=== PATIENT | male | born 1950 | race Caucasian/White ===

== ENCOUNTER 2023-06-19 16:50 | Emergency (ER) | payer MEDICARE, SELFPAY ==
--- NOTE | ~2023-06-19 | XR_ITS ---
EXAM: XR foot LT min 3V DATE: 06/19/2023 18:01 HISTORY: Pain x 2-3 days. NKI. Swelling. Dorsal/lat pain. . COMPARISON: None available. FINDINGS: Normal mineralization. No fracture or dislocation. No lytic or blastic lesion. Mild scatte red degenerative changes. Mild Achilles and moderate plantar enthesopathy with adjacent soft tissue c alcifications. No erosion or periosteal change. Soft tissues within normal limits. IMPRESSION: No acute osseous finding in the left foot. Reviewed, dictated and finalized at location [facility]
[2023-06-19 17:10] VITALS: BP 116/97; PULSE 93; RESP 20; TEMP 37.2; O2SAT 96
--- NOTE | 2023-06-19 18:22 | ED.GENADULT ---
HPI - General Adult General Chief complaint: Extremity Problem,Nontraumatic Stated complaint: Left Ankle Pain Time Seen by Provider: 06/19/23 18:00 Source: patient, family, RN notes reviewed and old records reviewed Mode of arrival: wheelchair Limitations: no limitations History of Present Illness HPI narrative: 73 year old male accompanied by with complaints of 2-3 day history of left upper fore foot and lateral ankle pain and swelling with no known injury. Patient reports that he has tightness to his left foot and ankle with sharp shooting pain and is tender on palpation, denies any tingling or numbness pulses palpable to the top of left foot.Patient reports that when he elevates his foot it hurts worse and seems to swell more. Patient states that ambulation is difficult for him not only due to pain of his foot but because of having chronic shortness of breath. Patient reports that he has some lung nodules and he takes some kind of shot monthly, sees cream tester in [place]. Patient reports that he had a prior episode of similar pain but not as bad. Has taken some OTC medications for discomfort. MD complaint: proximal foot and lateral ankle Onset (ago): day(s) (2-3) Severity scale (1-10): 8 Quality: other (throbbing) Exacerbating factors: movement and other (weight bearing) Treatments prior to arrival: NSAID and other (Tylenol) Related Data Home Medications Medication Instructions Recorded Confirmed albuterol sulfate 90 mcg/actuation See Rx Instructions .Route .COMPLEX 06/19/23 06/19/23 aerosol inhaler budesonide 160 mcg-glycopyr 9 See Rx Instructions .Route .COMPLEX 06/19/23 06/19/23 mcg-formot 4.8 mcg/actuation HFA inhaler (Breztri Aerosphere) furosemide 40 mg tablet 40 mg PO DAILY 06/19/23 06/19/23 lisinopril 20 mg tablet 20 mg PO DAILY 06/19/23 06/19/23 Allergies Allergy/AdvReac Type Severity Reaction Status Date / Time No Known Allergies Allergy Verified 06/19/23 17:43 Review of Systems Review of Systems: CONSTITUTIONAL: Denies fever, chills, or sweats. EYES: Denies visual changes, redness, or discharge. ENT: Denies rhinorrhea, congestion, sore throat, or otalgia. CARDIOVASCULAR: Denies chest pain, palpitations, or edema. RESPIRATORY: reports some cough and chronic dyspnea. GASTROINTESTINAL: Denies abdominal pain, nausea, vomiting, or diarrhea. GENITOURINARY: Denies dysuria or hematuria. SKIN: Denies rash or itching. MUSCULOSKELETAL: Denies back pain, positive for pain to left forefoot lateral ankle region with swelling, or myalgia. NEUROLOGIC: Denies headache, numbness, or weakness. PSYCHIATRIC: Denies anxiety or depression. 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 There is no relevant family history pertinent to the presenting complaint Exam Narrative: GENERAL:chronic ill appearing, well-nourished,obese and in no acute distress. HEAD: Normocephalic, atraumatic. EYES: PERRLA and EOMI. ENT: Nares clear, no rhinorrhea or epistaxis. Mucous membranes moist.TM's normal throat pink with no lesions or swelling
== END 2023-06-19 18:45 | disposition home or self-care (01) ==
PROVIDERS: Emergency Provider Registered Nurse; PCP Family Medicine
DX: M25.572 Pain in left ankle and joints of left foot (principal); I10 Essential (primary) hypertension; Z79.899 Other long term (current) drug therapy; Z87.891 Personal history of nicotine dependence
CPT/HCPCS: 73630; 99213; G0463